=== PATIENT | male | born 1970 | race Caucasian/White ===

== ENCOUNTER 2019-03-19 16:46 | Emergency (ER) | payer OTHER ==
[2019-03-19] MEDS ORDERED: SODIUM CHLORIDE 0.9% (FLUSH) 10 ML SYG IV PRN (17:09)
[2019-03-19] MEDS ORDERED: SODIUM CHLORIDE 0.9% 1000ML 1,000 ML IVS ONE ×2 (17:09→20:47)
[2019-03-19] MEDS ORDERED: ACETAMINOPHEN 500 MG TAB PO ONE (17:09)
--- NOTE | 2019-03-19 18:23 | RAD ---
EXAM: XR Chest, 1 View CLINICAL HISTORY: fever TECHNIQUE: Frontal view of the chest. COMPARISON: No relevant prior studies available. FINDINGS: Lungs: Unremarkable. No consolidation. Pleural space: Unremarkable. No pneumothorax. Heart: Unremarkable. No cardiomegaly. Mediastinum: Unremarkable. Bones/joints: Unremarkable. IMPRESSION: No abnormality noted. Electronically signed by: Chayito Desai MD 03/19/2019 6:22 PM [employer]
[2019-03-19] MEDS ORDERED: HYDROmorphone HCL INJ 2 MG/ML VIAL ONE (18:35)
[2019-03-19] MEDS ORDERED: CEFEPIME 2 GM in SODIUM CHL 0.9% 50ML MIN-BAG+ 50 ML IVPB ONE (18:45)
[2019-03-19] MEDS ORDERED: VANCOMYCIN HCL INJ 1,000 MG VIAL IVPB ONE (18:59)
[2019-03-19] MEDS ORDERED: SODIUM CHLORIDE 0.9% 250ML 250 ML ONE (18:59)
[2019-03-19] MEDS ORDERED: SODIUM CHL 0.9% 50ML MIN-BAG+ 50 ML IVPB ONE (18:59)
[2019-03-19] MEDS ORDERED: CEFEPIME 2 GM VIAL ONE (18:59)
[2019-03-19] MEDS ORDERED: VANCOMYCIN HCL INJ 1,500 MG in SODIUM CHLORIDE 0.9% 250ML 250 ML IVPB SCH (19:00)
--- NOTE | 2019-03-19 19:04 | RAD ---
EXAM DESCRIPTION: Chest x-ray,1 View CLINICAL HISTORY: Central line placement COMPARISON: March 19, 2019 FINDINGS: Cardiac silhouette is within normal limits. There is a left central venous catheter with the tip ending at the level of the superior vena cava. Upper ribs/apices were not completely included in the exam. Decreased lung volumes could be secondary to underinflation. There is no focal parenchymal or pleural disease. There is no acute osseous process visualized. IMPRESSION: No evidence of acute cardiopulmonary disease. Electronically signed by: Kevon Chang MD 03/19/2019 7:02 PM [facility]
--- NOTE | 2019-03-19 19:14 | ED.PDOC ---
History of Present Illness - General Chief Complaint: Fever Stated Complaint: Feverm chills, headache, facial swelling Time Seen by Provider: 03/19/19 17:09 Source: patient, RN notes reviewed, Vital Signs reviewed, family - Exam Limitations: no limitations - History of Present Illness Initial Comments: Patient is a 48-year-old white male who presents with complaints of fever, headache, facial swelling and right lower extremity pain and edema. Patient has recently had 2 previous episodes of sepsis with a presumed source in that right leg from an unknown cause. Patient's fever has been as high as 103 at home. This started yesterday evening. The pain is throbbing and stabbing in nature. It is severe. Nothing makes it better. It is worse with palpation or dangling the leg. There is no radiation of the pain. Timing/Duration: 24 hours Severity: severe Improving Factors: nothing Worsening Factors: movement Associated Symptoms: fever/chills, headaches, malaise, weakness Allergies/Adverse Reactions: Allergies NO KNOWN ALLERGY Allergy (Verified 03/19/19 17:23) Home Medications: Ambulatory Orders Gabapentin 300 mg PO PRN PRN 03/19/19 HYDROcodone 10MG/APAP 325MG [Driver 10/325] 1 tab PO PRN PRN 03/19/19 Review of Systems - Review of Systems Constitutional: States: see HPI, chills, diaphoresis, fever, malaise, weakness EENTM: States: no symptoms reported, see HPI. Denies: blurred vision, double vision, ear pain, nose congestion, throat pain, mouth pain Respiratory: States: no symptoms reported. Denies: cough, orthopnea, short of breath, wheezing Cardiology: States: no symptoms reported. Denies: chest pain, palpitations Gastrointestinal/Abdominal: States: no symptoms reported. Denies: abdominal pain, diarrhea, nausea, vomiting Genitourinary: States: no symptoms reported. Denies: discharge, frequency, hematuria Musculoskeletal: States: no symptoms reported. Denies: back pain, joint pain, muscle pain, muscle stiffness Skin: States: change in color - Right lower extremity Neurological: States: no symptoms reported Endocrine: States: no symptoms reported Hematologic/Lymphatic: States: no symptoms reported All other Systems: Reviewed and Negative Past Medical History (General) - Patient Medical History Hx Stroke: No Hx of COPD: No Hx Cardiac Disorders: No Hx Hypertension: Yes Hx Diabetes: No Hx Cancer: No MRSA Source:: Wound - Vaccination History Hx Tetanus, Diphtheria Vaccination: Yes Hx Influenza Vaccination: Yes Hx Pneumococcal Vaccination: No Immunizations Up to Date: No - Social History Hx Tobacco Use: No Hx Alcohol Use: No Hx Substance Use: No Hx Substance Use Treatment: No Hx Depression: No Family Medical History - Family History Father Family History: No Known Physical Exam - Physical Exam General Appearance: Alert, Anxious, Obvious distress, Ill Appearing, Well Developed, Well Groomed, Well Hydrated, Well Nourished Eye Exam: bilateral normal Ears, Nose, Throat: hearing grossly normal, normal ENT inspection, normal pharynx Neck: non-tender, full range of motion, supple, normal inspection Respiratory: chest non-tender, lungs clear, normal breath sounds, no respiratory distress, no accessory muscle use Cardiovascular/Chest: normal peripheral pulses, no edema, no gallop, no JVD, no murmur, tachycardia Peripheral Pulses: radial,right: 2+, radial,left: 2+ Gastrointestinal/Abdominal: normal bowel sounds, non tender, soft Back Exam: normal inspection, no CVA tenderness, no vertebral tenderness Extremity: normal range of motion, other - Tenderness to palpation on the anterior aspect of the lower arteaga. 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 03/19/19 19:58 Patient presented with fever, leg pain and tachycardia. Patient always maintained good blood pressures. Tachycardia resolved after fever control with Tylenol and with IV fluid bolus. Source of infection is unclear at this point in time. Lactic acid is 2.0, but this is an initial lactic acid and with concern for sepsis will definitely repeat this lactic acid. Flu swab is pending. Patient has been given IV antibiotics, vancomycin and cefepime. Patient and his have requested transfer to [facility]. I have spoken to Dr. Garcia, who accepts patient for admission. Plan on ground transfer as the patient does not appear in extremis. Atilio Rodríguez M.D. #[id number] - Results/Orders Results/Orders: EXAM: XR Chest, 1 View CLINICAL HISTORY: fever TECHNIQUE: Frontal view of the chest. COMPARISON: No relevant prior studies available. FINDINGS: Lungs: Unremarkable. No consolidation. Pleural space: Unremarkable. No pneumothorax. Heart: Unremarkable. No cardiomegaly. Mediastinum: Unremarkable. Bones/joints: Unremarkable. IMPRESSION: No abnormality noted. Electronically signed by: Chayito Desai MD 03/19/2019 6:22 PM EXAM DESCRIPTION: Chest x-ray,1 View CLINICAL HISTORY: Central line placement COMPARISON: March 19, 2019 FINDINGS: Cardiac silhouette is within normal limits. There is a left central venous catheter with the tip ending at the level of the superior vena cava. Upper ribs/apices were not completely included in the exam. Decreased lung volumes could be secondary to underinflation. There is no focal parenchymal or pleural disease. There is no acute osseous process visualized. IMPRESSION: No evidence of acute cardiopulmonary disease. Electronically signed by: Kevon Chang MD 03/19/2019 7:02 PM [employer] 03/19/19 17:05 BLOOD CULTURE Stat 03/19/19 17:09 IV Care:Saline Lock per Protoc QSHIFT Telemetry .ONCE Sodium Chloride 0.9% (Flush) [Saline Flush Syringe] 10 ml IV PRN PRN Arterial Blood Gas Stat EKG Stat Pulse Ox Stat URINALYSIS Stat 03/19/19 19:00 Vancomycin HCl Inj 1,500 mg Sodium Chloride 0.9% 250Ml [NS 250ml] 250 ml IVPB Q12H Laboratory Results - last 24 hr 03/19/19 03/19/19 03/19/19 17:05 17:05 17:05 WBC 20.0 H RBC 4.20 L Hgb 13.1 L Hct 39.1 L MCV 93.1 MCH 31.2 H MCHC 33.5 RDW 14.5 Plt Count 210 MPV 8.6 Absolute Neuts (auto) Not Reportable Absolute Lymphs (auto) Not Reportable Absolute Monos (auto) Not Reportable Absolute Eos (auto) Not Reportable Neutrophils % Not Reportable Neutrophils % (Manual) 89.0 H Lymphocytes % Not Reportable Lymphocytes % (Manual) 3.0 Monocytes % Not Reportable Monocytes % (Manual) 1.0 Eosinophils % Not Reportable Basophils % Not Reportable Band Neutrophils 7.0 H Eosinophils 0.0 Basophils 0.0 Platelet Estimate Normal PT 10.8 INR 1.09 PTT (SP) 26.7 D-Dimer, Quantitative < 100 L Sodium 135 Potassium 3.6 Chloride 98 L Carbon Dioxide 27 Anion Gap 13.6 BUN 16 Creatinine 0.91 BUN/Creatinine Ratio 17.6 Random Glucose 102 Serum Osmolality 271.5 L Lactic Acid Calcium 9.0 Total Bilirubin 0.6 AST 25 ALT 22 Alkaline Phosphatase 54 Creatine Kinase 221 H* CK-MB (CK-2) 2.5 CK-MB (CK-2) % Not Reportable Troponin I < 0.02 Serum Total Protein 6.8 Albumin 4.0 Globulin 2.8 Albumin/Globulin Ratio 1.4 03/19/19 17:05 WBC RBC Hgb Hct MCV MCH MCHC RDW Plt Count MPV Absolute Neuts (auto) Absolute Lymphs (auto) Absolute Monos (auto) Absolute Eos (auto) Neutrophils % Neutrophils % (Manual) Lymphocytes % Lymphocytes % (Manual) Monocytes % Monocytes % (Manual) Eosinophils % Basophils % Band Neutrophils Eosinophils Basophils Platelet Estimate PT INR PTT (SP) D-Dimer, Quantitative Sodium Potassium Chloride Carbon Dioxide Anion Gap BUN Creatinine BUN/Creatinine Ratio Random Glucose Serum Osmolality Lactic Acid 2.0 Calcium Total Bilirubin AST ALT Alkaline Phosphatase Creatine Kinase CK-MB (CK-2) CK-MB (CK-2) % Troponin I Serum Total Protein Albumin Globulin Albumin/Globulin Ratio Departure - Departure Clinical Impression: Tachycardia, Dehydration Fever Qualifiers: Fever type: unspecified Qualified Code(s): R50.9 - Fever, unspecified Leukocytosis Qualifiers: Leukocytosis type: unspecified Qualified Code(s): D72.829 - Elevated white blood cell count, unspecified Disposition: Transfer to Hospital Condition: Fair Home Medications: Ambulatory Orders Gabapentin 300 mg PO PRN PRN 03/19/19 HYDROcodone 10MG/APAP 325MG [Driver 10/325] 1 tab PO PRN PRN 03/19/19 Critical Care Note - Critical Care Note Total Time (mins): 40 Transfer to Outside Facility - Transfer Information Decision to Transfer Date: 03/19/19 Decision to Transfer Time: 18:00 Reason for Transfer: specialized care not available Accepting Facility: [facility]
[2019-03-19] MEDS ORDERED: HYDROmorphone HCL INJ 2 MG/ML VIAL IV ONE (19:50)
[2019-03-19 20:03] VITALS: TEMP 100.1
[2019-03-19] MEDS ORDERED: SODIUM CHLORIDE 0.9% 1000ML 1,000 ML ONE (20:27)
[2019-03-19 20:34] VITALS: BP 126/65; O2SAT 94
== END 2019-03-19 20:34 | disposition short-term general hospital (02) ==
LOC: ER 16:46
DX: R50.9 Fever, unspecified (principal); R00.0 Tachycardia, unspecified; E86.0 Dehydration; D72.829 Elevated white blood cell count, unspecified; R22.0 Localized swelling, mass and lump, head; R60.0 Localized edema; M79.604 Pain in right leg; I10 Essential (primary) hypertension
CPT/HCPCS: 71045; 80053; 81001; 82550; 82553; 83605; 84484; 85025; 85379; 85610; 85730; 87040; 87502; 93005; J0692; J1170; J3370; J7030; J7050